=== PATIENT | female | born 1975 | race African-American/Black ===

== ENCOUNTER 2020-12-21 11:38 | Observation (INO) ==
[2020-12-21] MEDS ORDERED: SODIUM CHLORIDE 0.9% 1,000 ML IV STA (12:10)
[2020-12-21 13:16] LABS: Basophils % 0.3 % (0.0-0.8); Eosinophils % 0.1 % (0.00-10.9); Hematocrit 42.1 VOL% (35.7-47.0); Hemoglobin 13.8 GM/DL (12.0-16.0); Immature Granulocytes % 0.5 %; Immature Granulocytes Absolute 0.07 #; Lymphocytes # 1.3 10*3/uL (1.4-4.0); Lymphocytes % 10.2 % (21.3-54.2); Mean Corpuscular HGB Conc 32.8 GM/DL (32-36); Mean Corpuscular Volume 96.1 FL (87-102); Mean Platelet Volume 10.3 FL (9.6-12.0); Monocytes % 3.3 % (1.7-12.7); Neutrophils % 85.6 % (38.7-73.9); Platelet Count 229 T/CUMM (130-400); Red Blood Count 4.38 MC/CUMM (3.8-5.5); Red Cell Distribution Width 12.7 % (9.3-17.3)
[2020-12-21 13:30] LABS: Alanine Aminotransferase 27 U/L (13-56); Alkaline Phosphatase 57 U/L (45-117); Aspartate Amino Transferase 17 U/L (0-37); Blood Urea Nitrogen 15 MG/DL (7-18); Calcium 9.3 MG/DL (8.5-10.1); Carbon Dioxide 30 MMOL/L (21-32); Estimated Glom Filtration Rate 103 ML/MIN; Glucose 102 MG/DL (74-106); Osmolality,Calculated 275.7 MOS/KG (273-304); Potassium 3.4 MMOL/L (3.5-5.1); Sodium 138 MMOL/L (136-145); Total Protein 8.2 G/DL (6.4-8.3)
[2020-12-21 13:48] LABS: Barbiturates Screen,Urine Negative (Negative); Benzodiazepines Screen,Urine Positive (Negative); Cannabinoid Screen,Urine Positive (Negative); Opiate Screen,Urine Negative (Negative); Phencyclidine Screen,Urine Negative (Negative)
[2020-12-21] MEDS ORDERED: ONDANSETRON 4 MG/2 ML VIAL ONE (13:52)
[2020-12-21] MEDS ORDERED: LABETALOL 20 MG/4 ML SYRINGE IV ONE ×2 (14:13→14:42)
[2020-12-21 14:47] LABS: Hypochromasia 2+; Macrocytosis 1+; Platelet Estimate Normal
[2020-12-21] MEDS ORDERED: LABETALOL 20 MG/4 ML SYRINGE IV STA (15:23)
[2020-12-21] MEDS ORDERED: hydrALAZINE 20 MG/1 ML VIAL IV PRN (16:36)
[2020-12-21] MEDS ORDERED: DEXTROSE 50% 25 GM/50 ML VIAL IV PRN (16:36)
[2020-12-21] MEDS ORDERED: ONDANSETRON 4 MG/2 ML VIAL IV PRN ×2 (16:36→18:01)
[2020-12-21] MEDS ORDERED: ACETAMINOPHEN 325 MG TABLET PO PRN (16:36)
[2020-12-21] MEDS ORDERED: GLUCAGON 1 MG VIAL IM PRN (16:36)
[2020-12-21] MEDS ORDERED: diphenhydrAMINE 50 MG/1 ML VIAL IV PRN (16:40)
[2020-12-21] MEDS ORDERED: HydrOXYzine PAMOATE 50 MG CAPSULE PO PRN (16:40)
[2020-12-21] MEDS ORDERED: rOPINIRole 0.25 MG TABLET PO PRN (16:40)
[2020-12-21] MEDS ORDERED: METHOCARBAMOL 750 MG TABLET PO PRN (16:40)
[2020-12-21] MEDS ORDERED: LORazepam 2 MG/1 ML VIAL IV PRN (16:45)
[2020-12-21] MEDS ORDERED: ENOXAPARIN 40 MG/0.4 ML SYRINGE SUBCUT SCH (17:00)
[2020-12-21] MEDS: cloNIDine 0.1 MG TABLET PO SCH ×2 (17:10→22:29)
[2020-12-21 17:16] LABS: Thyroid Stimulating Hormone 1.04 uIU/ml (0.358-3.74)
[2020-12-21] MEDS: PANTOPRAZOLE 40 MG TABLET PO SCH (22:29)
[2020-12-22] MEDS: cloNIDine 0.1 MG TABLET PO SCH ×4 (01:55→13:42)
[2020-12-22 07:17] LABS: Basophils % 0.2 % (0.0-0.8); Eosinophils % 0.1 % (0.00-10.9); Hematocrit 43.6 VOL% (35.7-47.0); Hemoglobin 14.5 GM/DL (12.0-16.0); Immature Granulocytes % 0.3 %; Immature Granulocytes Absolute 0.04 #; Lymphocytes # 2.9 10*3/uL (1.4-4.0); Lymphocytes % 19.7 % (21.3-54.2); Mean Corpuscular HGB Conc 33.3 GM/DL (32-36); Mean Corpuscular Volume 94.6 FL (87-102); Mean Platelet Volume 9.9 FL (9.6-12.0); Monocytes % 4.8 % (1.7-12.7); Neutrophils % 74.9 % (38.7-73.9); Platelet Count 254 T/CUMM (130-400); Red Blood Count 4.61 MC/CUMM (3.8-5.5); Red Cell Distribution Width 12.6 % (9.3-17.3); White Blood Count 14.8 T/CUMM (4-12)
[2020-12-22 07:43] LABS: Calcium 9.3 MG/DL (8.5-10.1); Osmolality,Calculated 265.4 MOS/KG (273-304); Potassium 3.4 MMOL/L (3.5-5.1)
[2020-12-22] MEDS ORDERED: ASPIRIN CHEW 81 MG TABLET PO SCH (09:00)
[2020-12-22] MEDS: PANTOPRAZOLE 40 MG TABLET PO SCH (09:18)
[2020-12-22] MEDS ORDERED: POTASSIUM CHLORIDE 20 MEQ TABLET PO ONE (09:21)
[2020-12-22 11:18] VITALS: BP 105/67
== END 2020-12-22 14:40 | disposition home or self-care (01) ==
LOC: N.EDINP 11:38 → N.ED 11:38 → N.3E 17:35
PROVIDERS: ADMIT Internal Medicine; ATTEND Internal Medicine